=== PATIENT | female | born 1990 | race Caucasian/White ===

== ENCOUNTER 2016-12-19 21:22 | Emergency (ER) | payer BC ==
--- NOTE | ~2016-12-19 | CR172 ---
[facility] A Service of [facility] & [facility] RADIOLOGY TEXT RESULTS PATIENT: PAUL MCDONNELL LOCATION: CFT[facility] : 86 UNIT #: [id number] AGE: [address]: JACKSON LEAVITT APRN SEX: F ORDER DR: [id number] [facility] [address] [place], [place] [address] [id number] E MR#: [id number] Acc #: [id number] NAME: PAUL MCDONNELL : 1990 SEX: F STUDY DATE/TIME: 12/19/2016 21:34 UNIT: [facility] ROOM: STUDY DESCRIPTION: CR Knee 3 Views Lt Attending Physician: Jackson Leavitt Aprn Ordering Physician: Jackson Leavitt Aprn Primary Care Physician: Primary Care Physician No MEDICAL IMAGING REPORT This report is preliminary unless electronic signature is present EXAM Left knee, 12/19/2016 HISTORY 26-year-old female in the ED complaining of left knee pain and swelling beginning yesterday. No reported acute injury. TECHNIQUE Three-view left knee series. FINDINGS The examination is negative. No fracture, dislocation, arthropathy or other osseous abnormality is demonstrated. No visible joint effusion. IMPRESSION Negative left knee series. Dictated by... Maurilio Voss M.D. THIS IS AN ELECTRONICALLY VERIFIED REPORT Maurilio Voss M.D. at 12/20/2016 6:00 AM Yanna TD: 12/20/2016 02:36 JOB #: [id number] MEDICAL IMAGING REPORT Page 1 of 1 COPY
[~2016-12-19 21:22] MED LIST: FIORINAL 50-321 EACH PO; FLONASE16 GM; PREDNISONE PO; VICODIN PO; ZITHROMAX1 G/PKT PO; ZOFRAN ODT4 MG PO
== END 2016-12-20 00:32 | disposition home or self-care (01) ==
LOC: CFTX 21:22
DX: M25.562 Pain in left knee (principal); Z88.6 Allergy status to analgesic agent
CPT/HCPCS: 29530; 73562; 84703; 99283

== ENCOUNTER 2017-05-03 13:33 | Emergency (ER) | payer BC ==
[~2017-05-03] VITALS: Ht 170.2 cm; Wt 95.2 kg
--- NOTE | ~2017-05-03 | CT4 ---
[facility] A Service of [facility] RADIOLOGY TEXT RESULTS PATIENT: PAUL MCDONNELL LOCATION: [facility] : [birth year] UNIT #: [id number] AGE: [address]: [place] Messina MD SEX: F ORDER DR: [id number] [id number] [facility] [place], [place] [address] [id number] E MR#: [id number] Acc #: [id number] NAME: PAUL MCDONNELL : 1990 SEX: F STUDY DATE/TIME: 05/03/2017 15:42 UNIT: [facility] ROOM: STUDY DESCRIPTION: CT Abd and Pelv Wo Cont Attending Physician: [place] Messina M.D. Ordering Physician: [place] Messina M.D. Primary Care Physician: Francesca Santos M.D. MEDICAL IMAGING REPORT This report is preliminary unless electronic signature is present EXAM CT scan of the abdomen and pelvis without contrast INDICATION Patient is unable to keep anything down, vomiting for 4 days. COMPARISON 09/05/2014 TECHNIQUE Axial 5 mm images were obtained through the abdomen and pelvis without IV or oral contrast. Sagittal and coronal reconstructions were generated. This CT exam was performed with one or more of the following radiation dose reduction techniques: automatic exposure control, adjustment of mA and/or kV according to patient size, and iterative reconstruction. FINDINGS Lung bases are clear. The liver, gallbladder, spleen, pancreas, adrenal glands and kidneys are normal in appearance. The aorta is normal in size and there is no adenopathy. The bowel is normal. I do not see the appendix but I do not see any evidence of appendicitis. The uterus and adnexal regions and bladder are normal. Bones are unremarkable. IMPRESSION Negative unenhanced CT abdomen and pelvis. I do not see the appendix but I do not see any evidence of appendicitis either. There are no urinary stones. The bowel appears normal. [facility] A Service of [facility] RADIOLOGY TEXT RESULTS PATIENT: PAUL MCDONNELL LOCATION: [facility] : [birth year] UNIT #: [id number] AGE: [address]: [place] Messina MD SEX: F ORDER DR: Dictated by... Jeremiah Saleh M.D. THIS IS AN ELECTRONICALLY VERIFIED REPORT Jeremiah Saleh M.D. at 05/04/2017 7:21 AM KEITH/sisi TD: 05/04/2017 03:33 JOB #: [id number] MEDICAL IMAGING REPORT Page 1 of 1 COPY
[2017-05-03 14:13] LABS: URINE SOURCE CLEAN CATCH
[2017-05-03 14:21] LABS: BASOPHIL% 0.6 % (0-2.5); EOSINOPHIL# 0.1 X10e3 (0-0.7); EOSINOPHIL% 1.7 % (0.0-7.0); HEMOGLOBIN 11.6 gm/dL (12.0-16.0); LYMPHOCYTE# 1.8 X10e3 (1.0-3.5); LYMPHOCYTE% 26.5 % (17.0-45.0); MEAN CELL VOLUME 77.2 FL (83-96); MEAN CORPUSCULAR HEMOGLOBIN 25.6 PG (28-34); MEAN CORPUSCULAR HGB CONC 33.2 g/dL (30-36); MEAN PLATELET VOLUME 7.7 FL (6.5-11.5); MONOCYTE# 0.8 X10e3 (0-1.0); MONOCYTE% 10.9 % (3.0-12.0); NEUTROPHIL# 4.2 X10e3 (1.5-7.1); NEUTROPHIL% 60.3 % (40-75); PLATELET COUNT 301 X10e3 (140-420); RED BLOOD COUNT 4.53 X10e (3.90-5.30)
[2017-05-03 14:22] LABS: DIFF IND NO
[2017-05-03 14:24] LABS: URINE APPEARANCE CLOUDY; URINE BILIRUBIN NEG (NEG); URINE BLOOD 3+ (NEG); URINE COLOR YELLOW; URINE GLUCOSE NEG (NEG); URINE KETONE NEG (NEG); URINE LEUKOCYTE ESTERASE NEG (NEG); URINE NITRATE NEG (NEG); URINE PROTEIN NEG (NEG); URINE SPECIFIC GRAVITY 1.018 (1.003-1.035); URINE UROBILINOGEN 0.2 MG/DL (NEG)
[2017-05-03 14:27] LABS: URBCS1 AUWI 50-100 /[HPF] (0-2); URINE BACTERIA AUWI NEG (NEGATIVE); URINE SQUAMOUS EPITHELIAL CELL NONE SEEN /[HPF]
[2017-05-03 14:42] LABS: CULTURE INDICATED? NO
[2017-05-03 14:49] LABS: ALBUMIN SERUM 4.3 g/dL (3.5-5.0); BILIRUBIN, DIRECT 0.1 mg/dL (0.0-0.2); BILIRUBIN,INDIRECT 0.6 mg/dL (0.0-0.9); BILIRUBIN,TOTAL 0.7 mg/dL (0.2-2.0); BUN/CREATININE RATIO 12.5; CALCIUM SERUM 9.4 mg/dL (8.4-10.2); CREATININE SERUM 0.8 mg/dL (0.6-1.4); GLOM FILT RATE Estimated 100.4 mL/min (>60); POTASSIUM 4.1 mmol/L (3.5-5.1); PROTEIN TOTAL SERUM 7.4 g/dL (6.0-8.3)
== END 2017-05-03 16:25 | disposition home or self-care (01) ==
LOC: CED 13:33
PROVIDERS: Emergency Medicine
DX: R11.2 Nausea with vomiting, unspecified (principal); J45.909 Unspecified asthma, uncomplicated; Z88.6 Allergy status to analgesic agent
CPT/HCPCS: 36415; 74176; 80048; 80076; 81003; 83690; 84703; 85025; 96361; 96374; 99284; J2405